=== PATIENT | female | born 1995 | race Caucasian/White ===

== ENCOUNTER 2020-09-17 12:43 | Emergency (ER) | payer SELFPAY ==
[~2020-09-17] VITALS: Ht 154.9 cm; Wt 54.5 kg
--- NOTE | 2020-09-17 13:23 | NUR ---
One safe place notified, patient requested advocate.
[2020-09-17 16:06] LABS: CLARITY,URINE CLOUDY (Clear); COLOR,URINE YELLOW (Yellow); GLUCOSE, URINE NEGATIVE (Neg); KETONES,URINE 15 mg/dl (Neg); LEUKOCYTE ESTERASE ,URINE MODERATE (Neg); NITRITES, URINE NEGATIVE (Neg); OCCULT BLOOD,URINE LARGE (Neg); PROTEIN,URINE 100 mg/dl (Neg)
[2020-09-17 16:11] LABS: URINE AMPHETAMINE SCREEN POSITIVE (Neg); URINE BARBITUATE SCREEN NEGATIVE (Neg); URINE BENZODIAZEPINES SCREEN NEGATIVE (Neg); URINE CANNABINOID SCREEN POSITIVE (Neg); URINE COCAINE SCREEN NEGATIVE (Neg); URINE METHADONE SCREEN NEGATIVE (Neg); URINE OPIATE SCREEN NEGATIVE (Neg); URINE PHENCYCLIDINE SCREEN NEGATIVE (Neg)
[2020-09-17 16:13] LABS: UA COLLECTION TYPE CLN CATCH MIDSTREAM
[2020-09-17 16:16] LABS: CAL OXALATE CRYSTALS 4+ /HPF (NEGATIVE); WBC,URINE TNTC /HPF (0-4)
[2020-09-17 16:17] LABS: SQUAMOUS EPITHELIAL CELL,UR MANY /LPF (FEW)
[2020-09-17 16:18] LABS: BACTERIA,URINE 2+ /HPF (Neg)
[2020-09-17 17:02] LABS: URINE HCG NEGATIVE (NEG)
[2020-09-17] MEDS ORDERED: metroNIDAZOLE 500mg tablet PO ONE (17:25)
[2020-09-17] MEDS ORDERED: CefTRIAXone 250MG IM Kit w/LIDOcaine IM ONE (17:25)
[2020-09-17] MEDS ORDERED: azithromycin 250mg tablet PO ONE (17:25)
[2020-09-17] MEDS ORDERED: LEVONORGESTREL 1.5 MG (Plan B One-Step) TABLET PO (17:25)
[2020-09-17] MEDS ORDERED: CEPH-585 PO (17:30)
[2020-09-17 18:36] VITALS: BP 126/97
== END 2020-09-17 17:33 | disposition home or self-care (01) ==
LOC: EEVIPCON 12:44 → ER 12:44
DX: Z04.41 Encounter for examination and observation following alleged adult rape (principal); N39.0 Urinary tract infection, site not specified; R10.30 Lower abdominal pain, unspecified; Z79.2 Long term (current) use of antibiotics
CPT/HCPCS: 80305; 81001; 81025; 99283